=== PATIENT | male | born 2000 | race Two or more races ===

== ENCOUNTER 2023-03-23 15:18 | Emergency (ER) | payer BC, OTHER ==
[~2023-03-23] VITALS: Ht 185.4 cm; Wt 99.9 kg
[2023-03-23 15:55] VITALS: BP 124/76
[2023-03-23] MEDS ORDERED: IBUP-1456 PO (16:16)
== END 2023-03-23 16:30 | disposition home or self-care (01) ==
LOC: ER 15:18
DX: S93.401A Sprain of unspecified ligament of right ankle, initial encounter (principal); W22.8XXA Striking against or struck by other objects, initial encounter; Y93.89 Activity, other specified; Y92.89 Other specified places as the place of occurrence of the external cause; Y99.8 Other external cause status
CPT/HCPCS: 73610